=== PATIENT | female | born 1960 | race Caucasian/White ===

== ENCOUNTER → 2017-12-13 | Outpatient (CLI) | payer OTHER | LOC: MAMMO 10:26 | PROVIDERS: ATTEND Family Medicine | DX: Z12.31 Encounter for screening mammogram for malignant neoplasm of breast (principal) | CPT/HCPCS: 77067 ==

== ENCOUNTER → 2020-03-12 | Outpatient (CLI) | payer OTHER | LOC: MAMMO 12:46 | PROVIDERS: ATTEND Family Medicine | DX: Z12.31 Encounter for screening mammogram for malignant neoplasm of breast (principal) | CPT/HCPCS: 77067 ==

== ENCOUNTER → 2021-05-18 | Outpatient (CLI) | payer OTHER | LOC: MAMMO 09:04 | PROVIDERS: ATTEND Family Medicine | DX: Z12.31 Encounter for screening mammogram for malignant neoplasm of breast (principal); Z13.820 Encounter for screening for osteoporosis; M25.512 Pain in left shoulder | CPT/HCPCS: 77067; 77080 ==

== ENCOUNTER → 2022-09-16 | Outpatient (CLI) | payer OTHER | LOC: MAMMO 09:59 | PROVIDERS: ATTEND Family Medicine | DX: N63.20 Unspecified lump in the left breast, unspecified quadrant (principal) | CPT/HCPCS: 77066 ==

== ENCOUNTER → 2024-03-20 | Outpatient (REF) | payer OTHER | LOC: MAMMO 09:29 | PROVIDERS: ATTEND Family Medicine | DX: Z12.31 Encounter for screening mammogram for malignant neoplasm of breast (principal) | CPT/HCPCS: 77067 ==

== ENCOUNTER → 2024-06-25 | Outpatient (REF) | payer OTHER | LOC: CT 14:40 | PROVIDERS: ATTEND Family Medicine | DX: F17.211 Nicotine dependence, cigarettes, in remission (principal) | CPT/HCPCS: 71250 ==